=== PATIENT | female | born 1980 | race Caucasian/White ===

== ENCOUNTER 2023-03-23 12:19 | Emergency (ER) | payer OTHER ==
[~2023-03-23] VITALS: Ht 172.7 cm; Wt 84.1 kg
[2023-03-23 12:37] VITALS: BP 152/71
[2023-03-23] MEDS ORDERED: LIDOcaine 5% patch TP STA (14:23)
[2023-03-23] MEDS ORDERED: ketorolac trometh inj. 60 MG/2 ML VIAL IM ONE (14:25)
[2023-03-23] MEDS ORDERED: TRAM50TA2 PO (14:28)
[2023-03-23] MEDS ORDERED: LIDO700A32 TOP (14:28)
== END 2023-03-23 14:53 | disposition home or self-care (01) ==
LOC: ER 12:20
DX: R07.81 Pleurodynia (principal); Z88.1 Allergy status to other antibiotic agents; Z88.0 Allergy status to penicillin; Z88.2 Allergy status to sulfonamides; Z79.899 Other long term (current) drug therapy
CPT/HCPCS: 71100; 96372; 99283; J1885